=== PATIENT | male | born 1965 | race Two or more races ===

== ENCOUNTER 2020-06-29 22:20 | Emergency (ER) | payer OTHER ==
[2020-06-29] MEDS ORDERED: IBUPROFEN 800 MG TABLET PO ONE (22:48)
--- NOTE | 2020-06-29 23:04 | ER Document Report ---
ED General - General Stated Complaint: FEVER/COUGH/BODY ACHE Notes: Patient is a 54-year-old -[place] male with a history of bone marrow sarcoidosis and type 2 diabetes who presents to the emergency department with a chief complaint of cough and fever. The patient states she started having a slight cough yesterday. He states this morning he started noticing some fevers and some tenderness in the frontal sinuses. He states the cough is intermittent and few and far in between. He states occasionally he will start having a dry cough and lead to a coughing spell but is not coughing very often. States he is taken some Tylenol for the fevers and some Tylenol Cold and sinus for the other symptoms. No significant improvement noted. 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 States he was concerned so he came for evaluation. He denies any rashes, sore throat, neck pain, chest pain, shortness of breath or hemoptysis. - Related Data Allergies/Adverse Reactions: tramadol Allergy (Verified 06/29/20 22:51) flu vac Allergy (Uncoded 06/29/20 22:52) sulfur Allergy (Uncoded 06/29/20 22:51) Past Medical History - Social History Smoking Status: Unknown if Ever Smoked Family History: Reviewed & Not Pertinent Review of Systems - Review of Systems Constitutional: Fever EENT: denies: Nose pain Cardiovascular: denies: Orthopnea Respiratory: denies: Short of breath Gastrointestinal: denies: Poor appetite Genitourinary: denies: Incontinence Male Genitourinary: denies: Testicular pain Musculoskeletal: denies: Muscle stiffness Skin: denies: Change in hair/nails Hematologic/Lymphatic: denies: Easy bruising Neurological/Psychological: denies: Gait changes Physical Exam - Vital signs Vitals: Temp Pulse Resp BP Pulse Ox 101.7 F H 94 18 115/66 96 06/29/20 22:30 06/29/20 22:30 06/29/20 22:30 06/29/20 22:30 06/29/20 22:30 - General General appearance: Appears well, Alert In distress: None - HEENT Head: Normocephalic, Atraumatic Eyes: Normal Conjunctiva: Normal Extraocular movements intact: Yes Eyelashes: Normal Pupils: PERRL Ears: Normal External canal: Normal Tympanic membrane: Normal Nasal: Normal Mouth/Lips: Normal Mucous membranes: Normal Pharynx: Normal Neck: Normal - Respiratory Respiratory status: No respiratory distress Chest status: Nontender Breath sounds: Normal Chest palpation: Normal - Cardiovascular Rhythm: Regular Heart sounds: Normal auscultation - Neurological Neuro grossly intact: Yes Cognition: Normal Orientation: AAOx4 - Psychological Associated symptoms: Normal affect, Normal mood - Skin Skin Temperature: Warm Skin Moisture: Dry Skin Color: Normal Course - Re-evaluation Re-evalutation: 06/30/20 00:17 Reevaluation at this time, 12:17 AM: Patient is resting comfortably in the room. He is in no acute distress. His temperature has improved to 99 Fahrenheit. He is nontoxic in appearance. His chest x-ray was negative for any acute process we discussed the COPD-like changes. Flu swabs were negative. He is pending C OVID-19 test. We discussed quarantine until he receives a call that his test is negative or until he receives a call with a positive result and is given further instruction. Counseled him regarding the importance of close follow-up and advised that he return here or any ER immediately with any new, persistent or worsening symptoms. He verbalized understood and agreed. - Vital Signs Vital signs: Temp Pulse Resp BP Pulse Ox 101.7 F H 94 18 115/66 96 06/29/20 22:30 06/29/20 22:30 06/29/20 22:30 06/29/20 22:30 06/29/20 22:30 Discharge - Discharge Clinical Impression: Cough, Person under investigation for COVID-19 Fever Qualifiers: Fever type: unspecified Qualified Code(s): R50.9 - Fever, unspecified Condition: Stable Disposition: HOME, SELF-CARE Instructions: COVID-19 Guidance for Persons Under Investigation Additional Instructions: Please self isolate and quarantine in your home until you receive a phone call with a negative COVID-19 result. If a positive result is found you will be notified and given further instructions. You are at this time considered a patient under investigation for COVID-19. Please follow-up closely by phone with your primary provider and return here or any ER immediately with any new, persistent or worsening symptoms. Forms: Return to Work Referrals: [facility] [NO LOCAL MD] - Follow up as needed
[2020-06-29 23:56] LABS: A TYPE INFLUENZA AG NEGATIVE (NEGATIVE); B INFLUENZA AG NEGATIVE (NEGATIVE)
--- NOTE | 2020-06-30 00:04 | RADIOLOGY REPORT (SQ) ---
CLINICAL INDICATION: cough fever. TECHNIQUE: A single portable AP view was obtained of the chest at 2308 hours. COMPARISON: None available. FINDINGS: The cardiomediastinal silhouette is top normal. The lungs are hyperinflated with crowding at the bases. No consolidation. No evidence of effusion or pneumothorax. The visualized bones are unremarkable. IMPRESSION: No evidence of active intrathoracic disease. Chronic emphysematous changes
[2020-06-30 00:34] VITALS: BP 120/80
== END 2020-06-30 00:35 | disposition home or self-care (01) ==
LOC: ER 22:20
DX: R05 Cough (principal); R50.9 Fever, unspecified; M79.10 Myalgia, unspecified site; Z20.828 Contact with and (suspected) exposure to other viral communicable diseases; E11.9 Type 2 diabetes mellitus without complications
CPT/HCPCS: 99284; 87804; 71045; U0003; C9803; 87635